=== PATIENT | female | born 1970 | race Caucasian/White ===

== ENCOUNTER 2018-12-17 10:59 | Emergency (ER) | payer MEDICAID ==
[~2018-12-17] VITALS: Ht 160 cm; Wt 98.0 kg
--- NOTE | 2018-12-17 11:43 | NUR ---
PT WAS IN THE SHOWER, FELL TO THE BOTTOM OF THE TUB AND HIT NECK ON THE EDGE OF THE STEP IN. , PER WITNESS, BLACKED OUT/PASSED OUT NOT KNOWING WHERE SHE WAS AT. FOR ABOUT 10-15 SECS, AFTER A FEW QUESTIONS PT WAS ABLE TO ANSWER QUESTIONS. PT STATES SHE IS NAUSEA. FOR ABOUT THE LAST 3 DAYS. PT STATES SHE IN ON HER CYCLE AND THINKS THAT IS RELATED TO HER BEING NAUSEA. FAMILY AT BEDSIDE , CALL LIGHT IN HAND, AND PT ON MONITOR.
[2018-12-17 11:56] LABS: ALBUMIN 3.7 g/dL (3.4-5.0); ANION GAP 5 mmol/L (5-15); BASOPHILS # (AUTO) 0.02 x10^3/uL (0-0.1); BASOPHILS % (AUTO) 0 % (0-1); CALCIUM 8.7 mg/dL (8.5-10.1); CHLORIDE 107 mmol/L (98-107); EOSINOPHILS # (AUTO) 0.21 x10^3/uL (0-0.4); EOSINOPHILS % (AUTO) 3 % (1-7); LYMPHOCYTES # (AUTO) 1.44 x10^3/uL (1-3.4); LYMPHOCYTES % (AUTO) 17 % (22-44); MD NO; MEAN CORPUSCULAR HEMOGLOBIN 30.3 pg (27.0-34.8); MEAN CORPUSCULAR HGB CONC 32.6 g/dL (32.4-35.8); MEAN PLATELET VOLUME 9.9 fL (7.4-10.4); MONOCYTES # (AUTO) 0.69 x10^3/uL (0.2-0.8); MONOCYTES % (AUTO) 8 % (2-9); NEUTROPHILS # (AUTO) 5.88 x10^3/uL (1.8-6.8); NEUTROPHILS % (AUTO) 71 % (42-75); PLATELET COUNT 267 x10^3/uL (130-400); RED BLOOD COUNT 4.37 x10^6/uL (3.82-5.3); RED CELL DISTRIBUTION WIDTH 13.5 % (9.6-15.2)
[2018-12-17 12:03] LABS: CREATININE 0.85 mg/dL (0.55-1.02); TROPONIN I < 0.015 ng/mL (0.000-0.045)
[2018-12-17] MEDS ORDERED: IBUPROFEN 600 MG TABLET ONE (12:31)
--- NOTE | 2018-12-17 12:44 | NUR ---
)IBU given for pain, and an ice pack (for previous shoulder injury), pt put into a gown.
--- NOTE | 2018-12-17 12:55 | NUR ---
PT IN CT
--- NOTE | 2018-12-17 13:09 | NUR ---
RETURNED FROM CT. HARD C-COLLAR IN PLACE. PT A&OX4, RESP EVEN & UNLABORED, SPEECH CLEAR. 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 HX RT SHOULDER PAIN FROM PREV INJURY. VS MONITORING CONTINUING. SIDE RAILS UP X2, CALL LIGHT W/IN ROOM. FAMILY IN ROOM. LAST ORAL INTAKE: 2330 LAST NOC. SOME WATER THIS AM.
[2018-12-17] MEDS ORDERED: HYDROcodone/APAP 5/325 TABLET ONE (13:25)
[2018-12-17] MEDS ORDERED: HYDROcodone/APAP 5/325 TABLET PO ONE (13:30)
--- NOTE | 2018-12-17 13:31 | NUR ---
C-COLLAR REMOVED PER JAQUELINE, XR TECH PER VO DR SÁNCHEZ. CXR DONE. NORCO GIVEN PER EMAR.
[2018-12-17 13:42] VITALS: BP 117/71
--- NOTE | 2018-12-17 13:43 | NUR ---
MD AT BEDSIDE, PT SITTING ON EDGE OF BED AWAIT A TRIP TO THE RESTROOM.
--- NOTE | 2018-12-17 13:56 | NUR ---
PT AMBULATE TO THE BATHROOM AND BACK WITH SBA, PT GIVEN DC PAPERWORK. NO OTHER CONCERNS/COMPLAINTS AT THIS TIME. VSS. HELPED CHANGE BACK INTO STREET [employer]OTHES.
== END 2018-12-17 14:05 | disposition home or self-care (01) ==
LOC: ED 13:34
DX: S16.1XXA Strain of muscle, fascia and tendon at neck level, initial encounter (principal); R55 Syncope and collapse; X58.XXXA Exposure to other specified factors, initial encounter; Y93.89 Activity, other specified; Y92.89 Other specified places as the place of occurrence of the external cause; Y99.8 Other external cause status
CPT/HCPCS: 36415; 71045; 72125; 80048; 82040; 83880; 84484; 85025; 93005; 99284